=== PATIENT | female | born 1950 | race Caucasian/White ===

== ENCOUNTER → 2017-09-22 | Outpatient (CLI) | payer OTHER ==
[~2017-09-22] MED LIST: AMAN100; AMLO5 PO; ASPI325 PO; BENAML10/5 PO; CALCAVITD PO; CYAN500 PO; ESTR.05TPW; GABA300; HYDACE5 PO; INTE30I; INTE30I SC; IRON 100 PLUS1 EACH PO; LISI10; LOSA25 PO; METH5; NITR100CA PO; NYSTRITC TOP; OXYACE10 PO; OXYACE5T PO; OXYB5 PO; OXYB5ER; PLEGRIDY125 MCG/0. SQ; RANI150 PO; RXOXYACE PO; RXTRAM50 PO; SILSUL1TC TOP; SIMV20; SPECIAL C 5001 EACH PO; TOBR.3OPSO OP; TRAM50 PO; TRAZ150T57 PO; [UNRECOGNIZED DRUG - OTHER]
== END | disposition home or self-care (01) ==
LOC: PLD 07:49 → LAB SHORT 07:49
DX: D22.62 Melanocytic nevi of left upper limb, including shoulder (principal)
CPT/HCPCS: 88305

== ENCOUNTER → 2018-04-04 | Outpatient (CLI) | payer OTHER | END | disposition home or self-care (01) | LOC: LAB SHORT 14:22 → PLD 14:22 | DX: L82.1 Other seborrheic keratosis (principal) | CPT/HCPCS: 88305 ==

== ENCOUNTER 2019-02-06 20:37 | Emergency (ER) | payer OTHER ==
[~2019-02-06] VITALS: Ht 160 cm; Wt 67.1 kg
[2019-02-06] MEDS ORDERED: FAMO20 PO (21:14)
[2019-02-06 21:46] LABS: BASOPHILS ABSOLUTE AUTO 0.02 K/mm3 (0.00-0.23); BASOPHILS PERCENT AUTO 0 % (0-2); EOSINOPHILS ABSOLUTE AUTO 0.04 K/mm3 (0.00-0.68); EOSINOPHILS PERCENT AUTO 1 % (0-6); Hematocrit 35.3 % (33.0-51.0); Hemoglobin 11.5 g/dL (11.5-16.0); IMMATURE GRAN ABSOLUTE AUTO 0.03 K/mm3 (0.00-0.10); IMMATURE GRAN PERCENT AUTO 1 % (0-1); LYMPHOCYTES ABSOLUTE AUTO 0.26 K/mm3 (0.84-5.20); LYMPHOCYTES PERCENT AUTO 4 % (21-46); MONOCYTES ABSOLUTE AUTO 0.39 K/mm3 (0.16-1.47); MONOCYTES PERCENT AUTO 6 % (4-13); Mean Corpuscular HGB 31.1 pg (26.0-34.0); Mean Corpuscular HGB Conc 32.6 g/dL (31.5-36.5); Mean Corpuscular Volume 95 fL (80-100); Mean Platelet Volume 9.2 fL (9.1-12.4); NEUTROPHILS ABSOLUTE AUTO 5.83 K/mm3 (1.96-9.15); NEUTROPHILS PERCENT AUTO 89 % (41-73); Platelet Count 252 K/mm3 (150-400); RDW Standard Deviation 45.4 fL (35.1-46.3); White Blood Cell Count 6.57 K/mm3 (4.00-11.30)
[2019-02-06 22:04] LABS: Alanine Aminotransfer (ALT/SGP 21 U/L (12-78); Albumin, Blood 3.8 g/dL (3.4-5.0); Alk Phos 101 U/L (50-136); Anion Gap 6 mmol/L (6-16); Aspartate Aminotrans (AST/SGOT 23 U/L (12-37); Bilirubin, Total 0.2 mg/dL (0.1-1.0); Blood Urea Nitrogen 21 mg/dL (8-24); Bun/Creatinine Ratio 24.9 (12.0-20.0); CO2, Blood 24 mmol/L (21-32); Calcium, Blood 9.3 mg/dL (8.5-10.1); Chloride, Blood 108 mmol/L (98-108); Creatinine, Blood 0.85 mg/dL (0.40-1.00); Globulin, Blood 3.9 g/dL (2.2-4.0); Glomerular Filtration Rate >60 (60-); Glucose, Blood 113 mg/dL (70-99); Potassium, Blood 3.6 mmol/L (3.5-5.5); Sodium, Blood 138 mmol/L (136-145); Total Protein, Blood 7.7 g/dL (6.4-8.2)
[2019-02-06 23:18] LABS: Source, Urine Clean Catch
[2019-02-06 23:21] LABS: Bilirubin, Urine Neg (Neg); Blood, Urine Neg (Neg); Glucose Qualitative, Urine Neg (Neg); Ketones, Urine 1+ (Neg); Leukocyte Esterase, Urine 1+ (Neg); Nitrite, Urine Neg (Neg); Protein, Urine 1+ (Neg); Urobilinogen, Urine 1+ (Normal)
[2019-02-06 23:28] LABS: Appearance, Urine Clear (Clear); Color, Urine Yellow (P-Yellow); Red Blood Cells, Urine 0-2 /hpf (0-2); Squamous Epithelial Cells Few /hpf (Few)
[2019-02-06 23:29] LABS: Bacteria Mod /hpf; Mucus Heavy ({null, 0-Heavy})
[2019-02-07] MEDS ORDERED: Macrobid 100 M100 MG PO (00:22)
== END 2019-02-07 00:39 | disposition home or self-care (01) ==
LOC: ER 20:37
PROVIDERS: Physician Assistant
DX: N39.0 Urinary tract infection, site not specified (principal); R06.02 Shortness of breath; T37.5X5A Adverse effect of antiviral drugs, initial encounter; Z88.5 Allergy status to narcotic agent; Z88.8 Allergy status to other drugs, medicaments and biological substances; Z88.0 Allergy status to penicillin; Z91.048 Other nonmedicinal substance allergy status; Z79.899 Other long term (current) drug therapy; Z79.82 Long term (current) use of aspirin; I10 Essential (primary) hypertension
CPT/HCPCS: 36415; 80053; 81001; 84484; 85025; 87086; 93005; 93010; 96374; 96375; 99284-25; J1100; J2405; J3010

== ENCOUNTER → 2020-12-18 | Outpatient (CLI) | payer OTHER ==
[~2020-12-18] MED LIST changes: +FAMO20 PO; +Macrobid 100 M100 MG PO
[2020-12-18 14:25] LABS: BASOPHILS ABSOLUTE AUTO 0.02 K/mm3 (0.00-0.23); BASOPHILS PERCENT AUTO 0 % (0-2); EOSINOPHILS ABSOLUTE AUTO 0.11 K/mm3 (0.00-0.68); EOSINOPHILS PERCENT AUTO 2 % (0-6); Hematocrit 36.2 % (33.0-51.0); Hemoglobin 11.7 g/dL (11.5-16.0); IMMATURE GRAN ABSOLUTE AUTO 0.01 K/mm3 (0.00-0.10); IMMATURE GRAN PERCENT AUTO 0 % (0-1); LYMPHOCYTES ABSOLUTE AUTO 1.37 K/mm3 (0.84-5.20); LYMPHOCYTES PERCENT AUTO 28 % (21-46); MONOCYTES ABSOLUTE AUTO 0.31 K/mm3 (0.16-1.47); MONOCYTES PERCENT AUTO 6 % (4-13); Mean Corpuscular HGB 30.8 pg (26.0-34.0); Mean Corpuscular HGB Conc 32.3 g/dL (31.5-36.5); Mean Corpuscular Volume 95 fL (80-100); Mean Platelet Volume 9.6 fL (9.1-12.4); NEUTROPHILS ABSOLUTE AUTO 3.15 K/mm3 (1.96-9.15); NEUTROPHILS PERCENT AUTO 63 % (41-73); Platelet Count 182 K/mm3 (150-400); RDW Coefficient Variation 13.6 % (11.7-14.2); RDW Standard Deviation 47.9 fL (35.1-46.3); White Blood Cell Count 4.97 K/mm3 (4.00-11.30)
[2020-12-18 14:34] LABS: Anion Gap 3 mmol/L (6-16); Blood Urea Nitrogen 27 mg/dL (8-24); Bun/Creatinine Ratio 32.8 (12.0-20.0); CO2, Blood 26 mmol/L (21-32); Chloride, Blood 108 mmol/L (98-108); Creatinine, Blood 0.82 mg/dL (0.40-1.00); Glomerular Filtration Rate >60 (60-); Glucose, Blood 93 mg/dL (70-99); Potassium, Blood 3.9 mmol/L (3.5-5.5); Sodium, Blood 137 mmol/L (136-145)
== END ==
LOC: LAB SHORT 13:01 → LAB UCHC 13:01
PROVIDERS: Internal Medicine
DX: G35 Multiple sclerosis (principal); I10 Essential (primary) hypertension; N39.0 Urinary tract infection, site not specified
CPT/HCPCS: 80048; 85025; 87077; 87086; 87186

== ENCOUNTER 2022-08-19 13:58 | Emergency (ER) | payer OTHER ==
[~2022-08-19] VITALS: Ht 167.6 cm; Wt 68.0 kg
[2022-08-19] MEDS ORDERED: LIDO700A20 TOP (15:37)
== END 2022-08-19 15:48 | disposition home or self-care (01) ==
LOC: ER 13:58
DX: M54.50 Low back pain, unspecified (principal); G35 Multiple sclerosis; I10 Essential (primary) hypertension; Z87.891 Personal history of nicotine dependence
CPT/HCPCS: 73502; J1885

== ENCOUNTER 2022-08-22 13:16 | Emergency (ER) | payer OTHER ==
[~2022-08-22] VITALS: Ht 160 cm; Wt 64.0 kg
[~2022-08-22 13:16] MED LIST changes: +LIDO700A20 TOP
[2022-08-23] MEDS ORDERED: Norco 5-325 Ta1 EACH PO (15:46)
== END 2022-08-22 14:57 | disposition left against medical advice (07) ==
LOC: ER 13:16
DX: R53.1 Weakness (principal); Z79.899 Other long term (current) drug therapy; Z79.82 Long term (current) use of aspirin; Z53.21 Procedure and treatment not carried out due to patient leaving prior to being seen by health care provider
CPT/HCPCS: 99281

== ENCOUNTER 2022-08-23 13:23 | Emergency (ER) | payer OTHER ==
[~2022-08-23] VITALS: Ht 160 cm; Wt 64.0 kg
[2022-08-23] MEDS ORDERED: Norco 5-325 Ta1 EACH PO (15:46)
== END 2022-08-23 15:57 | disposition home or self-care (01) ==
LOC: ER 13:23
DX: S92.332A Displaced fracture of third metatarsal bone, left foot, initial encounter for closed fracture (principal); S92.342A Displaced fracture of fourth metatarsal bone, left foot, initial encounter for closed fracture; S92.352A Displaced fracture of fifth metatarsal bone, left foot, initial encounter for closed fracture; I10 Essential (primary) hypertension; W19.XXXA Unspecified fall, initial encounter; Z88.5 Allergy status to narcotic agent; Z88.0 Allergy status to penicillin; Z88.8 Allergy status to other drugs, medicaments and biological substances; Z91.09 Other allergy status, other than to drugs and biological substances; Z79.899 Other long term (current) drug therapy; Z79.82 Long term (current) use of aspirin; Z87.891 Personal history of nicotine dependence
CPT/HCPCS: 73630

== ENCOUNTER → 2024-08-24 | Outpatient (CLI) | payer OTHER ==
[~2024-08-24] MED LIST changes: +AMLO10 PO; -ASPI325 PO; +Aspir 8181 MG PO; -CALCAVITD PO; +CALCIUM 600 +1 EA11 PO; +IRON 100 PLUS PO; -IRON 100 PLUS1 EACH PO; +LOSA50 PO; +MECL12.5 PO; +Norco 5-325 Ta1 EACH PO; +PLEGRIDY IM; -PLEGRIDY125 MCG/0. SQ; +PRAV20 PO; +PROLIA60 MG/1 ML SC; -SPECIAL C 5001 EACH PO; +[UNRECOGNIZED DRUG - OTHER] PO
[2024-08-24 10:26] LABS: BASOPHILS ABSOLUTE AUTO 0.03 K/mm3 (0.00-0.23); BASOPHILS PERCENT AUTO 1 % (0-2); EOSINOPHILS ABSOLUTE AUTO 0.02 K/mm3 (0.00-0.68); EOSINOPHILS PERCENT AUTO 1 % (0-6); Hematocrit 36.5 % (33.0-51.0); Hemoglobin 11.8 g/dL (11.5-16.0); IMMATURE GRAN ABSOLUTE AUTO 0.02 K/mm3 (0.00-0.10); IMMATURE GRAN PERCENT AUTO 1 % (0-1); LYMPHOCYTES ABSOLUTE AUTO 0.98 K/mm3 (0.84-5.20); LYMPHOCYTES PERCENT AUTO 24 % (21-46); MONOCYTES PERCENT AUTO 15 % (4-13); Mean Corpuscular HGB Conc 32.3 g/dL (31.5-36.5); Mean Corpuscular Volume 93 fL (80-100); NEUTROPHILS ABSOLUTE AUTO 2.42 K/mm3 (1.96-9.15); NEUTROPHILS PERCENT AUTO 60 % (41-73); Platelet Count 225 K/mm3 (150-400); RDW Coefficient Variation 14.4 % (11.7-14.2); RDW Standard Deviation 48.5 fL (35.1-46.3); Red Blood Cell Count 3.93 M/mm3 (3.80-5.20); White Blood Cell Count 4.07 K/mm3 (4.00-11.30)
[2024-08-24 10:36] LABS: Albumin, Blood 3.6 g/dL (3.4-5.0); Albumin/Globulin Ratio 0.9 (0.8-1.8); Bilirubin, Total 0.2 mg/dL (0.1-1.0); Bun/Creatinine Ratio 16.9 (12.0-20.0); Calcium, Blood 8.8 mg/dL (8.5-10.1); Creatinine, Blood 0.77 mg/dL (0.40-1.00); Potassium, Blood 3.9 mmol/L (3.5-5.5); Total Protein, Blood 7.6 g/dL (6.4-8.2)
== END ==
LOC: LAB SHORT 10:21 → LAB 10:21
PROVIDERS: Family Medicine
DX: R42 Dizziness and giddiness (principal)
CPT/HCPCS: 80053; 85025

== ENCOUNTER 2024-08-26 08:28 | Observation (INO) | payer OTHER ==
[~2024-08-26] VITALS: Ht 157.5 cm; Wt 59.9 kg
[~2024-08-26 08:28] MED LIST changes: -AMLO10 PO; -LOSA50 PO; -MECL12.5 PO; -PRAV20 PO; -PROLIA60 MG/1 ML SC
[2024-08-26] MEDS ORDERED: Meclizine HCl 25 MG Tab PO ONE (09:25)
[2024-08-26 09:27] LABS: BASOPHILS ABSOLUTE AUTO 0.02 K/mm3 (0.00-0.23); BASOPHILS PERCENT AUTO 1 % (0-2); EOSINOPHILS ABSOLUTE AUTO 0.01 K/mm3 (0.00-0.68); EOSINOPHILS PERCENT AUTO 0 % (0-6); Hematocrit 35.8 % (33.0-51.0); Hemoglobin 11.8 g/dL (11.5-16.0); IMMATURE GRAN ABSOLUTE AUTO 0.01 K/mm3 (0.00-0.10); IMMATURE GRAN PERCENT AUTO 0 % (0-1); LYMPHOCYTES ABSOLUTE AUTO 1.27 K/mm3 (0.84-5.20); LYMPHOCYTES PERCENT AUTO 34 % (21-46); MONOCYTES ABSOLUTE AUTO 0.45 K/mm3 (0.16-1.47); MONOCYTES PERCENT AUTO 12 % (4-13); Mean Corpuscular HGB 30.6 pg (26.0-34.0); Mean Corpuscular Volume 93 fL (80-100); NEUTROPHILS ABSOLUTE AUTO 1.94 K/mm3 (1.96-9.15); NEUTROPHILS PERCENT AUTO 52 % (41-73); Platelet Count 201 K/mm3 (150-400); RDW Coefficient Variation 14.7 % (11.7-14.2); RDW Standard Deviation 49.7 fL (35.1-46.3); Red Blood Cell Count 3.86 M/mm3 (3.80-5.20)
[2024-08-26] MEDS ORDERED: Labetalol HCL 5 MG/ML 4ML Injection (Single Dose) IV ONE (09:45)
[2024-08-26 09:48] LABS: Albumin, Blood 3.5 g/dL (3.4-5.0); Albumin/Globulin Ratio 0.9 (0.8-1.8); Bilirubin, Total 0.3 mg/dL (0.1-1.0); Bun/Creatinine Ratio 26.6 (12.0-20.0); Calcium, Blood 8.7 mg/dL (8.5-10.1); Creatinine, Blood 0.64 mg/dL (0.40-1.00); Globulin, Blood 3.9 g/dL (2.2-4.0); Potassium, Blood 3.9 mmol/L (3.5-5.5); Total Protein, Blood 7.4 g/dL (6.4-8.2)
[2024-08-26] MEDS ORDERED: HydrALAZINE HCl 20 MG / ML 1ML Vial IV ONE (09:50)
[2024-08-26] MEDS ORDERED: Scopolamine Hydrobromide Patch TOP ONE (11:00)
[2024-08-26] MEDS ORDERED: LORazepam 1 MG Tab PO ONE (11:00)
[2024-08-26] MEDS ORDERED: FLU VACC TS2024-25(6MOS UP)/PF 45 MCG/0.5 ML SYRINGE IM ONE (15:00)
[2024-08-26 16:54] LABS: Source, Urine Clean Catch
[2024-08-26 16:57] LABS: Appearance, Urine Clear (Clear); Bilirubin, Urine Neg (Neg); Blood, Urine Neg (Neg); Glucose Qualitative, Urine Neg (Neg); Ketones, Urine Neg (Neg); Leukocyte Esterase, Urine 1+ (Neg); Nitrite, Urine Neg (Neg); Protein, Urine Neg (Neg); Specific Gravity, Urine 1.005 (1.003-1.022); Urobilinogen, Urine NORM (Normal)
[2024-08-26 17:02] LABS: Color, Urine Pale Yellow (P-Yellow)
[2024-08-26 17:03] LABS: Bacteria Few /hpf; Red Blood Cells, Urine 0-2 /hpf (0-2); Squamous Epithelial Cells Few /hpf (Few)
[2024-08-26] MEDS ORDERED: Meclizine HCl 25 MG Tab PO PRN (17:45)
[2024-08-26] MEDS ORDERED: HydrALAZINE HCl 20 MG / ML 1ML Vial IV PRN (17:55)
[2024-08-26] MEDS ORDERED: Losartan Potassium 25 MG Tab PO SCH (18:00)
[2024-08-26] MEDS ORDERED: AMLO10 PO (19:43)
[2024-08-26] MEDS ORDERED: PRAV20 PO (19:43)
[2024-08-26] MEDS ORDERED: LOSA50 PO (19:44)
[2024-08-26] MEDS ORDERED: Acetaminophen 500 MG Tab PO PRN (20:15)
[2024-08-26 20:26] VITALS: BP 150/59
[2024-08-26] MEDS ORDERED: Famotidine 20 MG Tab PO SCH (21:00)
[2024-08-26] MEDS ORDERED: TraZODone HCl 50 MG Tab PO SCH (21:00)
[2024-08-26] MEDS ORDERED: PROLIA60 MG/1 ML SC (21:02)
[2024-08-26] MEDS ORDERED: MECL12.5 PO (21:04)
[2024-08-27 04:49] VITALS: BP 151/67
[2024-08-27 05:16] LABS: BASOPHILS ABSOLUTE AUTO 0.01 K/mm3 (0.00-0.23); BASOPHILS PERCENT AUTO 0 % (0-2); EOSINOPHILS ABSOLUTE AUTO 0.02 K/mm3 (0.00-0.68); EOSINOPHILS PERCENT AUTO 1 % (0-6); Hematocrit 34.4 % (33.0-51.0); Hemoglobin 11.2 g/dL (11.5-16.0); IMMATURE GRAN ABSOLUTE AUTO 0.01 K/mm3 (0.00-0.10); IMMATURE GRAN PERCENT AUTO 0 % (0-1); LYMPHOCYTES ABSOLUTE AUTO 1.58 K/mm3 (0.84-5.20); LYMPHOCYTES PERCENT AUTO 50 % (21-46); MONOCYTES ABSOLUTE AUTO 0.45 K/mm3 (0.16-1.47); MONOCYTES PERCENT AUTO 14 % (4-13); Mean Corpuscular HGB 30.4 pg (26.0-34.0); Mean Corpuscular HGB Conc 32.6 g/dL (31.5-36.5); Mean Corpuscular Volume 94 fL (80-100); Mean Platelet Volume 8.9 fL (9.1-12.4); NEUTROPHILS ABSOLUTE AUTO 1.09 K/mm3 (1.96-9.15); NEUTROPHILS PERCENT AUTO 35 % (41-73); Platelet Count 192 K/mm3 (150-400); RDW Coefficient Variation 14.7 % (11.7-14.2); RDW Standard Deviation 50.7 fL (35.1-46.3); Red Blood Cell Count 3.68 M/mm3 (3.80-5.20); White Blood Cell Count 3.16 K/mm3 (4.00-11.30)
[2024-08-27 05:38] LABS: Bun/Creatinine Ratio 21.6 (12.0-20.0); Calcium, Blood 8.8 mg/dL (8.5-10.1); Creatinine, Blood 0.74 mg/dL (0.40-1.00); Potassium, Blood 3.6 mmol/L (3.5-5.5)
--- NOTE | 2024-08-27 06:00 | NUR ---
SHIFT SUMMARY PT A&OX4 AND ANSWERS QUESTIONS APPROPRIATELY. PT ARRIVED ON UNIT AROUND [id number] AND WAS ORIENTED TO ROOM AND UNIT. PT VSS, NO COMPLAINTS OF CP/PRESSURE OR SOB. PT COMPLAINS OF DIZZINESS. PT RECEIVED SCHEDULED AND PRN MEDICATIONS. PT SPENT MOST OF THE SHIFT IN BED WITH EYES CLOSED AND RESPIRATIONS EVEN AND UNLABORED. NO ACUTE EVENTS AT THIS TIME. REPOSITIONED INDEPENDENTLY. PT LEFT IN A POSITION OF SAFETY WITH FALL PRECAUTIONS IN PLACE AND CALL LIGTH IN REACH.
[2024-08-27 07:40] VITALS: BP 151/69
[2024-08-27] MEDS ORDERED: Aspirin 325 MG Tab PO SCH (09:00)
[2024-08-27] MEDS ORDERED: Enoxaparin 40 MG/0.4 ML SYR SC SCH (09:00)
[2024-08-27 15:35] VITALS: BP 175/71
--- NOTE | 2024-08-27 17:59 | NUR ---
SHIFT SUMMARY PT CONT LEVEL OF CARE. PT A&O X4 AND ASSIST X1. PT NOTED TO VOICE C/O DIZZINESS WITH STANDING OR MOVING HEAD POSITION. THERAPY NOTED TO WORK WITH PT THIS SHIFT.
[2024-08-27 19:43] VITALS: BP 168/66
[2024-08-28 03:18] VITALS: BP 150/73
[2024-08-28 05:14] LABS: BASOPHILS ABSOLUTE AUTO 0.01 K/mm3 (0.00-0.23); BASOPHILS PERCENT AUTO 0 % (0-2); EOSINOPHILS ABSOLUTE AUTO 0.05 K/mm3 (0.00-0.68); EOSINOPHILS PERCENT AUTO 1 % (0-6); Hematocrit 34.3 % (33.0-51.0); Hemoglobin 11.2 g/dL (11.5-16.0); IMMATURE GRAN ABSOLUTE AUTO 0.01 K/mm3 (0.00-0.10); IMMATURE GRAN PERCENT AUTO 0 % (0-1); LYMPHOCYTES ABSOLUTE AUTO 1.54 K/mm3 (0.84-5.20); LYMPHOCYTES PERCENT AUTO 41 % (21-46); MONOCYTES ABSOLUTE AUTO 0.45 K/mm3 (0.16-1.47); MONOCYTES PERCENT AUTO 12 % (4-13); Mean Corpuscular HGB 30.7 pg (26.0-34.0); Mean Corpuscular HGB Conc 32.7 g/dL (31.5-36.5); Mean Corpuscular Volume 94 fL (80-100); NEUTROPHILS ABSOLUTE AUTO 1.66 K/mm3 (1.96-9.15); NEUTROPHILS PERCENT AUTO 45 % (41-73); Platelet Count 179 K/mm3 (150-400); RDW Coefficient Variation 14.7 % (11.7-14.2); RDW Standard Deviation 51.4 fL (35.1-46.3); Red Blood Cell Count 3.65 M/mm3 (3.80-5.20); White Blood Cell Count 3.72 K/mm3 (4.00-11.30)
--- NOTE | 2024-08-28 05:24 | NUR ---
SHIFT SUMMARY PT ALERT ORIENTED X 4 ABLE TO VERBALIZE NEEDS CALLS APPROPRIATELY. GETS UP TO COMMODE WITH SBA. VSS ON RA SATTING AT 96%. NO C/O DIZZINESS THIS SHIFT. NO C/O CHEST PAIN OR PRESSURE. SHE TOOK A SHOWER LAST NIGHT AND DID WELL. NO C/O PAIN RESTING WELL IN BED AT THIS TIME WITH CALL LIGHT IN REACH
[2024-08-28 05:56] LABS: Albumin, Blood 3.3 g/dL (3.4-5.0); Albumin/Globulin Ratio 0.9 (0.8-1.8); Bilirubin, Total 0.2 mg/dL (0.1-1.0); Bun/Creatinine Ratio 20.3 (12.0-20.0); Calcium, Blood 8.6 mg/dL (8.5-10.1); Creatinine, Blood 0.79 mg/dL (0.40-1.00); Globulin, Blood 3.5 g/dL (2.2-4.0); Potassium, Blood 3.8 mmol/L (3.5-5.5); Total Protein, Blood 6.8 g/dL (6.4-8.2)
[2024-08-28 07:39] VITALS: BP 148/80
--- NOTE | 2024-08-28 14:20 | NUR ---
PT DISCHARGED HOME, DISCHARGE INSTRUCTIONS DISCUSSED WITH PT. EMPHASIZED IMPORTANCE OF TALKING WITH PCP ABOUT RECOMMENDED OUTPATIENT THERAPY. PT HAS PRESCRIPTIONS ALREADY AT [facility]. NO NEW SCRIPTS THIS VISIT.
== END 2024-08-28 14:19 | disposition home or self-care (01) ==
LOC: ER 08:28 → ERHOLD 08:29 → MEDS 08:29
PROVIDERS: Family Medicine; Student in an Organized Health Care Education/Training Program; ADMIT Family Medicine
DX: H81.13 Benign paroxysmal vertigo, bilateral (principal); I10 Essential (primary) hypertension; K21.9 Gastro-esophageal reflux disease without esophagitis; G35 Multiple sclerosis; G47.00 Insomnia, unspecified; I73.9 Peripheral vascular disease, unspecified; Z66 Do not resuscitate; Z87.891 Personal history of nicotine dependence; Z79.82 Long term (current) use of aspirin; Z79.899 Other long term (current) drug therapy; Z88.0 Allergy status to penicillin; Z88.5 Allergy status to narcotic agent; Z88.1 Allergy status to other antibiotic agents; Z88.8 Allergy status to other drugs, medicaments and biological substances; Z91.048 Other nonmedicinal substance allergy status; Z90.710 Acquired absence of both cervix and uterus
CPT/HCPCS: 36415; 70450; 70553; 71045; 80048; 80053; 81001; 84484; 85025; 87086; 93005; 93010; 96374-59; 97112; 97116; 97162; 99285-25; A9270; A9579; G0378; J0360

== ENCOUNTER → 2025-06-12 | Outpatient (CLI) | payer OTHER ==
[~2025-06-12] MED LIST changes: +AMLO10 PO; +LOSA50 PO; +MECL12.5 PO; +PRAV20 PO; +PROLIA60 MG/1 ML SC
[2025-06-12 20:57] LABS: Ferritin, Serum 340.0 ng/mL (8-252); Magnesium, Blood 2.3 mg/dL (1.6-2.4); Thyroid Stimulating Hormone 1.87 uIU/mL (0.360-4.800); Total Iron Binding Capacity 325.0 ug/dL (250-450)
[2025-06-12 21:02] LABS: Phosphorus, Blood 2.9 mg/dL (2.5-4.9)
== END ==
LOC: LAB 17:11 → LAB SHORT 17:11
PROVIDERS: Internal Medicine
DX: D64.9 Anemia, unspecified (principal); E53.8 Deficiency of other specified B group vitamins; G25.81 Restless legs syndrome; I10 Essential (primary) hypertension; R53.82 Chronic fatigue, unspecified
CPT/HCPCS: 82607; 82728; 82746; 83540; 83550; 83735; 84100; 84443